=== PATIENT | female | born 1955 | race Caucasian/White ===

== ENCOUNTER → 2017-11-08 15:02 | Outpatient (CLI) | payer BC, SELFPAY ==
--- NOTE | 2017-11-08 15:25 | XR_ITS ---
EXAM: XR lumbar spine min 4V HISTORY: ITS.REASON: LOW BACK PAIN ORDERING PHYSICIAN: Miracle Houston MD PATIENT AGE: 62 years COMPARISON: None FINDINGS: Normal alignment. No fracture or dislocation. No lytic or blastic change. Severe degenerative disc disease is present at L2-L3 with endplate osteophytes. Posterior osteophytes are present at that level which may be causing canal stenosis. There is 7 mm anterolisthesis of L4 on L5 with degenerative disc disease at that level. The septum arthritic changes are present at L4-L5 and L5-S1 moderate to severe in nature. There is mild upper lumbar curvature convex right. A rounded calcific density is present in the right upper quadrant at 10 mm consistent with a gallstone. IMPRESSION: 1. Severe degenerative disc disease L2-L3 and L4-L5 with possible canal stenosis at L2-L3 and 7 mm anterolisthesis of L4 on L5. 2. Severe facet arthritic change L4-L5 and L5-S1. 3. Probable gallstone
== END ==
PROVIDERS: PCP Family Medicine; Visit Provider Family Medicine
DX: M54.5 Low back pain (principal)
CPT/HCPCS: 72110

== ENCOUNTER → 2017-11-21 07:39 | Outpatient (CLI) | payer BC, SELFPAY ==
--- NOTE | 2017-11-21 07:43 | US_ITS ---
US gallbladder HISTORY: ITS.REASON: CALCULUS OF GB WITHOUT CHOLECYSTITIS WITHOUT OBSTRUCTION ORDERING PHYSICIAN: Miracle Houston MD PATIENT AGE: 62 years Comparison: 11/08/2017 FINDINGS: PANCREAS: Unremarkable. No obvious mass or abnormal fluid collection. No ductal dilatation LIVER: No focal liver lesions demonstrated. Homogeneous echogenicity. No intrahepatic biliary ductal dilatation evident RIGHT KIDNEY: Unremarkable. Normal size and echogenicity. No hydronephrosis GALLBLADDER: There is a 9 mm stone in the region of the neck of the gallbladder. No gallbladder wall thickening, pericholecystic fluid, or biliary dilatation is evident. IMPRESSION: Cholelithiasis
--- NOTE | 2017-11-21 08:50 | MR_ITS ---
MR lumbar spine wo con, MR 3-d myelogram/MRCP HISTORY: PT States low back pain. Last 3-4 Months have gotten worse. RT side Leg Numbness and tingling. ITS.REASON: LOW BACK PAIN W/RIGHT SIDE SCIATICA ORDERING PHYSICIAN: Miracle Houston MD PATIENT AGE: 62 years Comparison: X-RAY 11/08/17 TECHNIQUE: Standard multiplanar multiecho sequences are performed without contrast. 3-D MIP and myelographic images are also rendered and reviewed FINDINGS: Spinal cord ends at the L1 level. T11-T12: Mild degenerative disc disease. T12-L1: Unremarkable. L1-L2: Mild facet and ligamentum hypertrophic change. L2-L3: Degenerative disc disease with mild bulging disc and endplate osteophytes along with facet and ligamentum flavum hypertrophy. There is moderate bilateral lateral recess narrowing right greater than left along with moderate to severe left-sided foraminal narrowing with some impingement upon the exiting L3 nerve root. Type II endplate changes L3-L4: There is a small broad-based right foraminal disc protrusion with narrowing of the foramen inferiorly on the right and moderate right lateral recess narrowing abutting the right L4 nerve root. L4-L5: 4 mm anterolisthesis of L4 on L5 with degenerative disc disease. There bulging disc along with severe facet and ligamentum flavum hypertrophy causing severe right lateral recess and foraminal narrowing with impingement upon the L5 nerve root. There is left-sided ligamentum and facet hypertrophy as well. There is transverse canal stenosis of 8 mm. L5-S1: Mild facet and ligamentum flavum hypertrophy with mild bilateral foraminal narrowing. IMPRESSION: 1. Multilevel lumbar spondylosis with degenerative disc disease along with facet and ligamentum flavum hypertrophy with lateral recess and foraminal narrowing as described above. Please see above for detailed description at each level. 2. Small broad-based right foraminal disc protrusion at L3-L4 abutting the right L4 nerve root. 3. Bulging disc with severe bilateral facet and ligamentum flavum hypertrophy at L4-L5. This is greater on the right with severe bilateral lateral recess narrowing right greater than left and impingement upon the L5 nerve roots right greater than left with canal stenosis at this level
== END ==
PROVIDERS: Family Provider Family Medicine; PCP Family Medicine; Visit Provider Family Medicine
DX: K80.20 Calculus of gallbladder without cholecystitis without obstruction (principal); M54.41 Lumbago with sciatica, right side
CPT/HCPCS: 72148; 76376; 76705

== ENCOUNTER → 2018-06-07 15:37 | Outpatient (CLI) | payer BC, SELFPAY ==
[2018-06-07 16:16] LABS: Blood Urea Nitrogen 8 mg/dL (7-18); Estimated Glomerular Filt Rate 73 ml/min (>60); GFR (African American) 88 ML/MIN (>60)
--- NOTE | 2018-06-07 16:43 | CT_ITS ---
CT head/brain wo/w con HISTORY: Persistent Headache and dizziness 2 days following injury ITS.REASON: POST TRAUMATIC HEADACHE ORDERING PHYSICIAN: Miracle Houston MD PATIENT AGE: 63 years COMPARISON: None TECHNIQUE: Axial images obtained following the intravenous administration of 100 mL of Isovue 300 contrast. Brain and bone windows reviewed. All CT scans at the facility use one or more dose reduction, viz: automated exposure control, ma/kV adjustment per patient size (including targeted exams where dose is matched to indication, i.e. head), or iterative reconstruction technique. FINDINGS: No midline shift, mass effect, intracranial hemorrhage, hydrocephalus, or extra-axial fluid collection is evident. There is an 8 mm area of decreased attenuation in the deep white matter of the left frontal parietal junction lateral to the anterior horn of the lateral ventricle and may be related to an area of ischemic gliotic change. No enhancing lesions. No intra or extra-axial hemorrhage. The calvarium has an unremarkable appearance. No mastoid effusion. No sinus air-fluid levels.. IMPRESSION: 1. No acute intracranial findings. 2. Left periventricular white matter hypodensity which may be related to ischemic gliotic change from microvascular disease or an old lacunar infarction.
== END ==
PROVIDERS: PCP Family Medicine; Visit Provider Family Medicine
DX: G44.319 Acute post-traumatic headache, not intractable (principal)
CPT/HCPCS: 36415; 70470; 82565; 84520; Q9967

== ENCOUNTER → 2020-03-13 10:15 | Outpatient (CLI) | payer BC, SELFPAY ==
--- NOTE | 2020-03-13 10:19 | MM_ITS ---
PROCEDURE: MM DIG SCREENING MAMM BI W/CAD Digital Breast Tomosynthesis Included CLINICAL INDICATION: SCREENING There is no personal or family history of breast cancer. COMPARISON: MG DIGMAMMS MAMMOGRAM SCREEN-VALVE MAKER N/C from 07/27/2007 MG DMSB DIG MAMM-SCREEN CAROLYN from 05/01/2013 MG DMSB DIG MAMM-SCREEN CAROLYN from 06/09/2016 TECHNIQUE: Standard CC and MLO images and 3D Tomosynthesis was obtained. R2 CAD reviewed. FINDINGS: Scattered fibroglandular densities are seen throughout both breasts. There is a mole marker right breast. There are couple of benign-appearing microcalcifications left breast. There is no suspicious lesion in either breast and no suspicious microcalcifications. IMPRESSION: Fibrofatty parenchyma with no suspicious lesions seen BI-RAD Category: 2 Benign Finding(s) FOLLOW-UP: 1YR 1 Year Follow-up (A letter has been sent to the patient regarding results of the study.) Dictated by: Dr. Sathya Carroll MD 03/20/2020 16:58 Dr. Sathya Carroll MD in [place] 03/20/2020 16:58
== END ==
PROVIDERS: PCP Family Medicine; Visit Provider Family Medicine
DX: Z12.31 Encounter for screening mammogram for malignant neoplasm of breast (principal)
CPT/HCPCS: 77063; 77067

== ENCOUNTER → 2022-07-27 09:48 | Outpatient (CLI) | payer MEDICARE, SELFPAY ==
--- NOTE | 2022-07-27 09:51 | MM_ITS ---
PROCEDURE INFORMATION: Exam: MG Bilateral Screening 3D Mammography Exam date and time: 07/27/2022 9:55 AM Age: 67 years old Clinical indication: Screening. No family history of breast cancer. TECHNIQUE: Imaging protocol: Bilateral Screening tomosynthesis and 2D mammography including computer-aided detection (CAD) when performed. COMPARISON: 1. MG MM DIG SCREENING MAMM BI W/CAD 03/13/2020 10:20 AM 2. MG DMSB DIG MAMM-SCREEN CAROLYN 06/09/2016 2:16 PM 3. MG DMSB DIG MAMM-SCREEN CAROLYN 05/01/2013 10:58 AM 4. MG DIGMAMMS MAMMOGRAM SCREEN-CAREER PLACEMENT SPECIALIST N/C 07/27/2007 11:18 AM FINDINGS: MAMMOGRAPHY: Breast composition: There are scattered areas of fibroglandular density. Mass: None. Architectural distortion: None. Calcifications: No suspicious calcifications. Asymmetric density: None. Skin thickening: None. Axillary adenopathy: None. IMPRESSION: No mammographic evidence of malignancy. Annual screening is recommended unless otherwise clinically indicated. ASSESSMENT: BI-RADS Category 1: Negative
== END ==
PROVIDERS: PCP Family Medicine; Visit Provider Nurse Practitioner Family
DX: Z12.31 Encounter for screening mammogram for malignant neoplasm of breast (principal)
CPT/HCPCS: 77063; 77067

== ENCOUNTER 2024-10-29 12:40 | Outpatient (CLI) | payer MEDICARE, SELFPAY ==
--- NOTE | 2024-10-29 12:43 | MM_ITS ---
PROCEDURE INFORMATION: Exam: MG Bilateral Screening 3D Mammography Exam date and time: 10/29/2024 12:54 PM Age: 69 years old Clinical indication: Screening mammogram TECHNIQUE: Imaging protocol: Bilateral Screening tomosynthesis and 2D mammography including computer-aided detection (CAD) when performed. COMPARISON: 1. MG MM DIG SCREENING MAMM BI W/CAD 07/27/2022 9:55 AM 2. MG MM DIG SCREENING MAMM BI W/CAD 03/13/2020 10:20 AM 3. MG DMSB DIG MAMM-SCREEN CAROLYN 06/09/2016 2:16 PM 4. MG DMSB DIG MAMM-SCREEN CAROLYN 05/01/2013 10:58 AM FINDINGS: MAMMOGRAPHY: Breast composition: There are scattered areas of fibroglandular density. Mass: None. Architectural distortion: No new or suspicious architectural distortion. Calcifications: No new or suspicious calcifications are present Asymmetric density: No new or suspicious asymmetric density is present Skin thickening: None. Axillary adenopathy: None. IMPRESSION: No mammographic evidence of malignancy. Recommend annual screening mammography unless otherwise clinically indicated. ASSESSMENT: BI-RADS category 1: Negative.
== END 2024-10-29 23:59 | disposition home or self-care (01) ==
LOC: RAD 12:41
PROVIDERS: PCP Family Medicine; Visit Provider Family Medicine
DX: Z12.31 Encounter for screening mammogram for malignant neoplasm of breast (principal); R92.1 Mammographic calcification found on diagnostic imaging of breast
CPT/HCPCS: 77063; 77067